=== PATIENT | male | born 1930 | race Caucasian/White ===

== ENCOUNTER 2016-05-22 10:36 | Emergency (ER) | payer MEDICARE, MEDICAID ==
[2016-05-22] MEDS ORDERED: Sodium Chloride 0.9% 500 ML IV ONE (11:36)
[2016-05-22] MEDS ORDERED: Sodium Chloride 0.9% 10 ML Syringe FLUSH PRN (11:36)
[2016-05-22] MEDS ORDERED: methylPREDNISolone Sodium Succinate 125 MG/2 ML SDV IV ONE (11:37)
[2016-05-22] MEDS ORDERED: Albuterol/Ipratropium 3.0-0.5 MG/3 ML Neb Soln NEB ONE (11:38)
[2016-05-22] MEDS ORDERED: Levofloxacin 500 MG Tab PO ONE (13:04)
[2016-05-22 13:56] VITALS: BP 156/72
--- NOTE | 2016-05-25 08:06 | ER ---
Date of Service: 05/22/2016 SUBJECTIVE: Charmaine presents to the emergency room from the [facility]. The patient has been experiencing a cough and chest congestion for several days. skilled nursing staff states that the patient has not been hypoxic. They state that the patient has been coughing up yellowish to whitish sputum. The patient states that he is not overly short of breath but the cough is quite bothersome. PAST MEDICAL HISTORY: 1. Hypertension. 2. Suprapubic catheter. 3. Frequent UTIs. 4. Dyslipidemia. 5. Gallbladder disease. 6. Peripheral neuropathy. 7. Type 2 diabetes mellitus. 8. Obesity. 9. Depression. 10.Status post influenza vaccination. REVIEW OF SYSTEMS: Positive for cough and chest congestion. No fever or chills. No chest pain or shortness of breath. No abdominal pain. No nausea, vomiting, or diarrhea. No melena, hematochezia, or hematemesis. PHYSICAL EXAMINATION: General: This is an 85-year-old male patient, who is in no acute distress. Vital Signs: Blood pressure is 113/72, temperature is 37.1, O2 saturations 97%. Skin: Warm, pink, and dry. HEENT: Head is normocephalic, atraumatic. Mouth, oral mucosa is moist. No erythema or exudate noted in the hypopharynx. Neck: Supple. No masses. There is no lymphadenopathy. Lungs: Diminished throughout. He does have rhonchi in the mid lung garcia. Heart: Regular rate and rhythm. Abdomen: Soft, nontender. There is no hepatosplenomegaly or masses noted. Extremities: Without edema. RADIOGRAPHIC DATA: Two-view chest x-ray was obtained. Does have evidence of what appears to be a right middle lobe infiltrate. Influenza swab was obtained. He was negative for influenza A and B. Blood cultures x2 were obtained and are pending. LABORATORY DATA: CBC was obtained, noted to all be within normal limits. Comprehensive metabolic panel was obtained with the exception of a mildly decreased sodium at 132, elevated glucose at 230, and decreased calcium at 8.2, were within normal limits. Liver enzymes were within normal limits. Alkaline phosphatase was 149. C-reactive protein is 22.6. Albumin is 2.6. EMERGENCY ROOM COURSE: IV access was established. He was given a 500 mL of saline fluid bolus. He was given a DuoNeb breathing treatment. He was given Solu-Medrol 125 mg IV and Levaquin 750 mg p.o. He remained stable in my care in the emergency room. ASSESSMENT: Healthcare-acquired pneumonia. PLAN: The patient was started on Levaquin 750 mg once daily for a total of 7 days. I would like him to follow up in the clinic in the next 10 to 14 days for recheck. Prednisone 40 mg daily for 6 days. All questions were answered. MWK: 05/24/2016 05:57:09 MODL: 05/24/2016 09:10:10 /[id number]
== END 2016-05-22 13:50 ==
LOC: VM.ED 10:36
DX: J18.9 Pneumonia, unspecified organism (principal); Y95 Nosocomial condition; I10 Essential (primary) hypertension; Z96.0 Presence of urogenital implants; Z87.440 Personal history of urinary (tract) infections; E78.5 Hyperlipidemia, unspecified; K82.9 Disease of gallbladder, unspecified; G62.9 Polyneuropathy, unspecified; E11.9 Type 2 diabetes mellitus without complications; E66.9 Obesity, unspecified; F33.9 Major depressive disorder, recurrent, unspecified; Z79.899 Other long term (current) drug therapy; Z79.4 Long term (current) use of insulin
CPT/HCPCS: 36415; 71010; 80053; 83605; 85025; 85610; 86140; 87040; 87804; 94640; 96365; 96375; 99284; A9270; J2930; J7030; J7050